=== PATIENT | female | born 1990 | race African-American/Black ===

== ENCOUNTER 2017-09-02 13:09 | Emergency (ER) | payer OTHER ==
[~2017-09-02] VITALS: Ht 162.6 cm; Wt 68.9 kg
[~2017-09-02 13:09] MED LIST: PENI500T PO
[2017-09-02 13:16] VITALS: BP 117/70
--- NOTE | 2017-09-02 13:24 | PHYS DOC ---
Past Medical History Past Medical History: Abscess Additional Past Medical Histor: dental caries Past Surgical History: No Surgical History Alcohol Use: None Drug Use: None Adult General Chief Complaint Chief Complaint: ABSCESS HPI HPI Patient is a 27 year old female who presents with left medial buttock abscess, developed over the last 2-3 days, no drainage. Patient denies fevers, has had prior abscesses in the past. Unsure of her last tetanus immunization. No PCP. Review of Systems Review of Systems Constitutional: Denies fever or chills [] Eyes: Denies change in visual acuity, redness, or eye pain [] HENT: Denies nasal congestion or sore throat [] Respiratory: Denies cough or shortness of breath [] Cardiovascular: Denies chest pain GI: Denies abdominal pain, nausea, vomiting, bloody stools or diarrhea [] : Denies dysuria or hematuria [] Musculoskeletal: Denies back pain or joint pain [] Integument: History of present illness Neurologic: Denies headache, focal weakness or sensory changes [] Endocrine: Denies polyuria or polydipsia [] Current Medications Current Medications Current Medications Medications (Trade) Dose Ordered Sig/Josefina Start Time Stop Time Status Last Admin Dose Admin Diphtheria/ Tetanus/Acell Pertussis (Boostrix) 0.5 ml ONCE ONCE 09/02/17 13:30 09/02/17 13:31 DC 09/02/17 13:33 0.5 ML Lidocaine/ Epinephrine (Xylocaine 1%-Epi 1:100,000) 20 ml 1X ONCE 09/02/17 13:30 09/02/17 13:31 DC 09/02/17 13:32 20 ML Allergies Allergies Allergies Coded Allergies Type Severity Reaction Last Updated Verified No Known Drug Allergies 11/19/13 No Physical Exam Physical Exam Constitutional: Well developed, well nourished, no acute distress, non-toxic appearance. [] HENT: Normocephalic, atraumatic Eyes: conjunctiva normal, no discharge. [] Neck: Normal range of motion Lungs & Thorax: No respiratory distress Back: Left proximal medial buttock with a fluctuant lesion that is tender to palpation, no opening, surrounding erythema Extremities: No tendernes Neurologic: Alert and oriented X 3, normal motor function, normal sensory function, no focal deficits noted. [] Psychologic: Affect normal, judgement normal, mood normal. [] Current Patient Data Vital Signs Vital Signs Date Time Temp Pulse Resp B/P (MAP) Pulse Ox O2 Delivery O2 Flow Rate FiO2 09/02/17 13:16 98.9 88 18 100 Room Air 98.9 EKG EKG [] Radiology/Procedures Radiology/Procedures Indication: abscess Procedure: The patient was positioned appropriately. Local anesthesia was 1% lidocaine with epi. An incision was then made over the apex of the lesion and significant foul-odors pus material was expressed. The drainage cavity was irrigated and packed with sterile gauze. The patients tetanus status updated The patient tolerated the procedure well. Complications: none.[] Course & Med Decision Making Course & Med Decision Making Pertinent Labs and Imaging studies reviewed. (See chart for details) Patient's tetanus was updated. Patient was transferred to a procedure room, I&D performed by me. Pt to f/u for wound check in 2 days, dc'd with Bactrim, recommended sitz baths. Dragon Disclaimer Dragon Disclaimer This electronic medical record was generated, in whole or in part, using a voice recognition dictation system. Departure Departure Impression: Primary Impression: Abscess Disposition: 01 HOME, SELF-CARE Condition: IMPROVED Referrals: NO PCP (PCP) Scripts Ibuprofen (IBUPROFEN) 600 Mg Tablet 600 MG PO PRN Q6HRS Y for PAIN, #20 TAB take with food or milk Prov: CONCEPCION CARLOS MD 09/02/17 Sulfamethoxazole/Trimethoprim (BACTRIM DS TABLET) 1 Each Tablet 1 TAB PO BID, #20 TAB Prov: CONCEPCION CARLOS MD 09/02/17 CONCEPCION CARLOS MD Sep 02, 2017 13:24
[2017-09-02] MEDS ORDERED: LIDOCAINE 1%/EPI 1:100,000 20 ML VIAL. INJ ONE (13:30)
[2017-09-02] MEDS ORDERED: DIPHTH,PERTUSS(ACELL),TET TOX 0.5 ML DISP.SYRIN. VAX IM ONE (13:30)
[2017-09-02] MEDS ORDERED: IBUP-1007 PO (14:20)
[2017-09-02] MEDS ORDERED: SULF1TAB24 PO (14:20)
== END 2017-09-02 14:21 | disposition home or self-care (01) ==
LOC: ER 13:09
DX: L02.31 Cutaneous abscess of buttock (principal)
CPT/HCPCS: 10060; 90471; 90715; 99283; J3490

== ENCOUNTER 2018-04-09 05:43 | Emergency (ER) | payer OTHER ==
[2018-04-09 06:03] LABS: URINE HCG POC HCG POSITIVE (Negative)
[2018-04-09 06:34] LABS: ADD MAN DIFF? NO
[2018-04-09 06:36] LABS: BILIRUBIN,URINE NEGATIVE (NEG); CLARITY,URINE CLEAR; COLOR,URINE YELLOW; GLUCOSE,URINE NEGATIVE (NEG); NITRITE,URINE NEGATIVE (NEG); PROTEIN,URINE NEGATIVE (NEG-TRACE)
[2018-04-09 06:50] LABS: ANION GAP 6 (6-14); BLOOD UREA NITROGEN 7 mg/dL (7-20); CALCIUM 8.6 mg/dL (8.5-10.1); CARBON DIOXIDE 28 mmol/L (21-32); CHLORIDE 104 mmol/L (98-107); CREATININE 0.9 mg/dL (0.6-1.0); GFR 90.9; GLUCOSE 101 mg/dL (70-99); POTASSIUM 3.8 mmol/L (3.5-5.1); SODIUM 138 mmol/L (136-145)
[2018-04-09 07:02] LABS: BACTERIA,URINE FEW /HPF (0-FEW); SQUAMOUS EPITHELIAL CELL,UR MOD /LPF; WBC,URINE OCC /HPF (0-4)
[2018-04-09 07:09] LABS: BASO % 1 % (0-3); EOS % 0 % (0-3); HEMATOCRIT 35.9 % (36.0-47.0); HEMOGLOBIN 11.7 g/dL (12.0-15.5); LYMPH # 2.3 x10^3/uL (1.0-4.8); LYMPH % 31 % (24-48); MEAN CORPUSCULAR HEMOGLOBIN 27 pg (25-35); MEAN CORPUSCULAR HGB CONC 33 g/dL (31-37); MEAN CORPUSCULAR VOLUME 82 fL (79-100); MONO # 0.4 x10^3/uL (0.0-1.1); MONO % 6 % (0-9); NEUT # 4.5 x10^3uL (1.8-7.7); NEUT % 62 % (31-73); PLATELET COUNT 220 x10^3/uL (140-400); RED CELL DISTRIBUTION WIDTH 16.7 % (11.5-14.5); WHITE BLOOD COUNT 7.3 x10^3/uL (4.0-11.0)
== END 2018-04-09 08:04 | disposition home or self-care (01) ==
LOC: ER 05:43
DX: O20.9 Hemorrhage in early pregnancy, unspecified (principal); O26.891 Other specified pregnancy related conditions, first trimester; L05.01 Pilonidal cyst with abscess; Z3A.01 Less than 8 weeks gestation of pregnancy
CPT/HCPCS: 36415; 76801; 76817; 80048; 81001; 81025; 84702; 85025; 86900; 86901; 99285-25

== ENCOUNTER 2018-04-10 06:00 | Emergency (ER) | payer OTHER ==
[2018-04-10 07:12] LABS: ADD MAN DIFF? NO
[2018-04-10 07:13] LABS: BASO # 0.1 x10^3/uL (0.0-0.2); BASO % 1 % (0-3); EOS % 0 % (0-3); HEMATOCRIT 34.5 % (36.0-47.0); HEMOGLOBIN 11.3 g/dL (12.0-15.5); LYMPH # 2.1 x10^3/uL (1.0-4.8); LYMPH % 27 % (24-48); MEAN CORPUSCULAR HEMOGLOBIN 27 pg (25-35); MEAN CORPUSCULAR HGB CONC 33 g/dL (31-37); MEAN CORPUSCULAR VOLUME 81 fL (79-100); MONO # 0.4 x10^3/uL (0.0-1.1); MONO % 6 % (0-9); NEUT # 5.1 x10^3uL (1.8-7.7); NEUT % 66 % (31-73); PLATELET COUNT 213 x10^3/uL (140-400); RED BLOOD COUNT 4.26 x10^6/uL (3.50-5.40); RED CELL DISTRIBUTION WIDTH 16.6 % (11.5-14.5); WHITE BLOOD COUNT 7.7 x10^3/uL (4.0-11.0)
== END 2018-04-10 07:43 | disposition home or self-care (01) ==
LOC: ER 06:00
DX: O03.9 Complete or unspecified spontaneous abortion without complication (principal); Z3A.01 Less than 8 weeks gestation of pregnancy
CPT/HCPCS: 36415; 84702; 85025; 99284

== ENCOUNTER 2018-08-01 06:28 | Emergency (ER) | payer SELFPAY ==
[~2018-08-01] VITALS: Ht 162.6 cm; Wt 77.1 kg
[~2018-08-01 06:28] MED LIST changes: +CEPH-264 PO; +IBUP-1007 PO; +SULF1TAB24 PO
[2018-08-01 07:00] VITALS: BP 132/85
[2018-08-01] MEDS ORDERED: AMOX1TAB61 PO (07:33)
[2018-08-01] MEDS ORDERED: HYDR-971 PO (07:34)
--- NOTE | 2018-08-01 07:38 | PHYS DOC ---
Past Medical History Past Medical History: Arthritis Additional Past Medical Histor: dental caries Past Surgical History: No Surgical History Alcohol Use: None Drug Use: None Adult General Chief Complaint Chief Complaint: Toothache HPI HPI Patient is a 28 year old female presenting with toothache apparently has had some swelling and left upper molar pain moderate dull nonradiating no fever similar to previous no other concerning features no respiratory problems. Current Medications Current Medications Current Medications Medications (Trade) Dose Ordered Sig/Josefina Start Time Stop Time Status Last Admin Dose Admin Clindamycin Phosphate (Cleocin Im) 600 mg 1X ONCE 08/01/18 07:45 08/01/18 07:46 UNV Allergies Allergies Allergies Coded Allergies Type Severity Reaction Last Updated Verified No Known Drug Allergies 11/19/13 No Physical Exam Physical Exam Constitutional: Well developed, well nourished, no acute distress, non-toxic appearance. [] HENT: Normocephalic, atraumatic, bilateral external ears normal, there is mild to moderate left upper arm maxillary area swelling no facial erythema no drainable abscess seen inside the mouth but there is poor dentition Eyes: PERRLA, EOMI, conjunctiva normal, no discharge. [] Neck: Normal range of motion, no tenderness, supple, no stridor. [] Pulmonary: Normal respiratory effort no increased work of breathing no obvious chest wall trauma no stridor Abdomen: Bowel sounds normal, soft, no tenderness, no masses, no pulsatile masses. [] Skin: Warm, dry, no erythema, no rash. [] Back: No tenderness, no CVA tenderness. [] Extremities: No tenderness, no cyanosis, no clubbing, ROM intact, no edema. [] Neurologic: Alert and oriented X 3, normal motor function, normal sensory function, no focal deficits noted. [] Psychologic: Affect normal, judgement normal, mood normal. [] Current Patient Data Vital Signs Vital Signs Date Time Temp Pulse Resp B/P (MAP) Pulse Ox O2 Delivery O2 Flow Rate FiO2 08/01/18 07:00 97.9 68 14 132/85 (101) 100 Room Air 97.9 EKG EKG [] Radiology/Procedures Radiology/Procedures [] Course & Med Decision Making Course & Med Decision Making Pertinent Labs and Imaging studies reviewed. (See chart for details) []Antibiotics given for toothache with mild to moderate facial swelling at this point time it doesn't seem there is anything drainable clinically she was given return precautions to come back in 24-48 hours or closest hospital for increase in facial swelling fever or any other symptoms or concerns Derick Disclaimer Derick Disclaimer This electronic medical record was generated, in whole or in part, using a voice recognition dictation system. Departure Departure Impression: Primary Impression: Pain, dental Disposition: HOME, SELF-CARE Condition: STABLE Referrals: NO PCP (PCP) Patient Instructions: Toothache-Brief Scripts Hydrocodone/Apap 5-325 (NORCO 5-325 TABLET) 1 Each Tablet 1-2 EACH PO PRN Q6HRS PRN for PER PROTOCOL, #15 as needed for pain Prov: EKATERINA METZGER MD 08/01/18 Amoxicillin/Potassium Clav (AUGMENTIN 875-125 TABLET) 1 Each Tablet 1 TAB PO BID, #20 TAB Prov: EKATERINA METZGER MD 08/01/18 EKATERINA METZGER MD Aug 01, 2018 07:38
[2018-08-01] MEDS: CLINDAMYCIN IM 600 MG/4 ML VIAL. IM ONE (08:01)
== END 2018-08-01 08:00 | disposition home or self-care (01) ==
LOC: ER 06:28
DX: K08.89 Other specified disorders of teeth and supporting structures (principal); M19.90 Unspecified osteoarthritis, unspecified site
CPT/HCPCS: 96372; 99283; J3490